=== PATIENT | male | born 1990 | race Caucasian/White ===

== ENCOUNTER 2016-11-17 03:24 | Emergency (ER) | payer SELFPAY ==
[~2016-11-17] VITALS: Ht 182.9 cm; Wt 61.2 kg
[~2016-11-17 03:24] MED LIST: OFLO10DR21 OT; SULF1TAB24 PO
[2016-11-17 03:25] VITALS: BP 133/74
[2016-11-17] MEDS ORDERED: LORAZEPAM 2 MG/ML VIAL IV ONE (04:00)
[2016-11-17] MEDS ORDERED: MVI, ADULT NO.4 WITH VIT K 10 ML, FOLIC ACID SYRINGE for ER 1 MG, THIAMINE 100 MG in IV... IV SCH ×4 (04:00)
--- NOTE | 2016-11-17 04:08 | PHYS DOC ---
General Chief Complaint: substance abuse/aggressive behavior Stated Complaint: disorderly/altered Time Seen by MD: 03:36 Source: patient, EMS, old records Exam Limitations: intoxication Problems: History of Present Illness Initial Comments Pt is 26/M to ED via EMS for AMS. Over the radio EMS recommends security present for their arrival to ED. EMS reports pt was trying to get a hotel room at [facility] but had no money and was being threatening/aggressive. Pt reportedly kicked out of prior residence last week possibly due to drugs and has been on the streets since. Hotel staff called law enforcement, who noticed pt appeared to be intoxicated and recommended ED evaluation. EMS reports that pt was very aggressive/combative at [facility] even with LE present, and medics had to pick pt up and carry him to ambulance. Pt physically /verbally threatening/abusive to EMS en route. On arrival pt immediately "fires" every ED staff member. Pt states he remembers me from [place], asks that I stop monitoring him with my apple watch. While talking to pt he will flex his upper body and lean in, especially when using abusive language or when he is told to be quiet. EMS reports that on scene and en route pt would "bow up" and then make sudden jerking movements attempting to intimidate them. Pt immediately uncooperative in the ED, refusing to disrobe and refusing vital signs. Pt uncooperative with questioning , refusing to answer any questions but continuing threatening speech and racial slurs. Threatened "I'll cough blood borne pathogens on you" appeared as if he would spit or cough on staff. "You have guns, I have a gun too." When staff asked where he kept his gun pt flexed his arm. EMS remained present to assist the nurses, and even with five staff members in room with pt he continues to hurl insults and threaten staff. I advised pt that no further abusive language or threats would be tolerated. I advised him that his vital signs were stable and appeared to be neurologically intact. Told him he appeared to be under the influence of a substance, and law enforcement felt he was danger to self or others in current condition so he was brought to ED. Further advised that if he would not allow us to help him by refusing treatments/tests or if any staff felt unsafe for any reason law enforcement would be called. He was advised that although he may be a danger to himself or others in public, he was medically stable to leave with law enforcement. Pt persisted with abusive behavior, refusing to disrobe/allow tests or physical exam. Pt with numerous attempts to redirect behavior and reason with him, pt remained unchanged. Law enforcement called. On arrival law enforcement went directly to the exam room. Pt immediately began ranting against officers and they instructed pt leave with them immediately. Pt reportedly aggressive with law enforcement once outside and left the property in their custody. All information regarding pt PMH obtained from prior ED records. ED VS: 97.9, 86, 133/74, 100% RA Allergies: Coded Allergies: tramadol (Verified Allergy, Intermediate, 07/28/16) Past Medical History Medical History: other (anxiety, depression, chronic pain, ADD, dental pain, vertigo) Surgical History: other Social History Smoker: cigarettes, chew Alcohol: occasionally Drugs: marijuana, other (methamphetamine) Review of Systems All Other Systems: Reviewed and Negative (pt altered and uncooperative, accurate ROS unobtainable) Physical Exam General Appearance: moderate distress, thin Eyes: bilateral eye EOMI, bilateral eye normal inspection Ear, Nose, Throat: hearing grossly normal, other (externally, ENT normal) Neck: full range of motion, supple Respiratory: no respiratory distress, no accessory muscle use Cardiovascular: normal peripheral pulses, regular rate, rhythm Extremities: normal range of motion, normal inspection Neurologic/Psychiatric: immigration lawyer II-XII nml as tested, no motor/sensory deficits, alert, other (pressured speech, tangential, paranoid, flight of ideas no obvious hallucination. Agitated/aggressive) Skin: normal color, warm/dry Orders, Labs, Meds Pt VSS, no lateralizing neurodeficits. Pt was given every opportunity to stay for evaluation/treatment. Ultimately, first EMS/ED staff concluded then LE determined on their arrival that pt presented a threat to ED staff. Pt refused redirection and left with law enforcement. IMPRESSIONS: AMS/acute intoxication Threatening behavior/disorderly History of substance abuse Noncompliance with medical care Departure Disposition: 01 HOME, SELF-CARE (d/c to LE ) Diagnosis: AMS probable intoxication, Aggressive/abusive beha Condition: STABLE Additional Instructions: Pt was removed from the ED by law enforcement due to threatening behavior and refusal of any care. ELVIRA DOLL DO November 17, 2016 04:08
== END 2016-11-17 04:00 | disposition home or self-care (01) ==
LOC: ER 03:59
DX: R41.82 Altered mental status, unspecified (principal); F91.8 Other conduct disorders; F19.129 Other psychoactive substance abuse with intoxication, unspecified; F17.220 Nicotine dependence, chewing tobacco, uncomplicated; F12.10 Cannabis abuse, uncomplicated; F15.10 Other stimulant abuse, uncomplicated; F41.9 Anxiety disorder, unspecified; F32.9 Major depressive disorder, single episode, unspecified; G89.29 Other chronic pain; F98.8 Other specified behavioral and emotional disorders with onset usually occurring in childhood and adolescence; Z91.14 Patient's other noncompliance with medication regimen
CPT/HCPCS: 99283